=== PATIENT | female | born 1995 ===

== ENCOUNTER 2019-02-28 17:40 | Inpatient (IN) | payer OTHER ==
[2019-02-28] MEDS ORDERED: BENZOCAINE 20% 57 GM BOTTLE TP PRN (18:02)
[2019-02-28] MEDS ORDERED: SENNOSIDES/DOCUSATE COMBO (SENNA PLUS) TABLET (UD) PO PRN (18:02)
[2019-02-28] MEDS ORDERED: METHYLERGONOVINE MALEATE 0.2 MG/1 ML AMP IM PRN (18:02)
[2019-02-28] MEDS ORDERED: WITCH HAZEL 50% (TUCKS) 40 PAD/JAR PAD TP PRN (18:02)
[2019-02-28] MEDS ORDERED: SIMETHICONE 80 MG TAB.CHEW (FP) PO PRN (18:02)
[2019-02-28] MEDS ORDERED: BENZOCAINE 28 GM HEMORRHOIDAL OINTMENT TP PRN (18:02)
[2019-02-28] MEDS ORDERED: OXYTOCIN 10 UNITS/ML VIAL IM ONE (18:03)
--- NOTE | 2019-02-28 18:08 | HP ---
Past Medical History - Admission Chief Complaint: Uterine contractions History of Present Illness: 23yo @ 39.2wks by stated ED of 03/05/2019. +ctx. +LOF 1630- clears. No VB. +FM PNC in the [place], no records available. In the [place] for one week with plans to travel home in 3 days. States has been uncomplicated. 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: Alzheimer's, CVA, Dementia, Migraine, Multiple Sclerosis, Peripheral Neuropathy, Parkinson's, Seizure, Syncope, TIA, Vertigo, Other Cardiovascular: No: AFIB, Aneurysm, Aortic Insufficiency, Aortic Stenosis, CAD, CHF, Deep Vein Thrombosis, HTN, Hyperlipdemia, SD, Mitral Insufficiency, Mitral Stenosis, Murmur, Pulmonary Hypertension, Other Pulmonary: No: Asthma, Bronchitis, Cancer, COPD, O2 Dependent, Pneumonia, Previously Intubated, Pulmonary Embolus, Pulmonary Fibrosis, Sleep Apnea, Other Gastrointestinal: No: Ascites, Cancer, Constipation, Crohn's Disease, Diverticulitis, Diverticulosis, Esophageal Varices, Gastritis, GERD, GI Bleed, Hemorrhoids, Hiatal Hernia, Inflamatory Bowel Disease, Irritable Bowel Disease, Pancreatitis, Peptic Ulcer Disease, Ulcerative Colitis, Other Hepatobiliary: No: Cirrhosis, Cholelithiasis, Cholecystitis, Choledocholithiasis , Hepatitis A, Hepatitis B, Hepatitis C, Other Renal/: No: Renal Failure, Renal Inusuff, BPH, Cancer, Hematuria, Hemodialysis , Neurogenic Bladder, Renal Calculi, UTI, Other Reproductive: No: Ectopic , Endometriosis, Fibroids, PID, Polycystic Ovary Syndrome, Postmenopausal, Other ...: 2 ...Para: 1 ...Term: 1 ...: 0 ...Spon : 0 ...Induced : 0 ...Multiple Gestation: 0 ... Weeks Gestation by Dates: 39.2 ...EDC by Dates: 03/05/19 Heme/Onc: No: Anemia, B12 Deficiency, Bleeding Disorder, Cancer, Current Chemotherapy, Current Radiation Therapy, Hemochromatosis, Hypercoaguable State, Myeloproliferative Synd, Sickle Cell Disease, Sickle Cell Trait, Thrombocytopenia, Other Infectious Disease: No: AIDS, C-Diff, Herpes Zoster, HIV, MRSA, STD's, Tuberculosis, VREF, Other Psych: No: Addictions, Anxiety, Bipolar, Depression, Panic, Psychosis, Schizophrenia, Other Musculoskeletal: No: Bursitis, Chronic low back pain, Hemiparesis, Hemiplegia, Osteoarthritis, Paraplegia, Other Rheumatology: No: Fibromyalgia, Gout, Lupus, Rheumatoid Arthritis, Sarcoidosis, Vasculitis, Other ENT: No: Allergic Rhinitis, Sinusitis, Other Endocrine: No: Antonio's Disease, Saint Benedict's Disease, Diabetes Insipidus, Diabetes Mellitus, Hyperparathyroidism, Hyperthyroidism, Hypothyroidism, Osteopenia, SIADH, Other Dermatology: No: Basal Cell, Cellulitis, Eczema, Melanoma, Psoriasis, Squamous Cell, Other - Past Surgical History Past Surgical History: No: None, AAA Repair, AICD, Amputation, Appendectomy, Arthrosocopy, AV Fistula/Graft, Bariatric Surgery, Breast Biopsy, Bypass, CABG, Carotid Endarterectomy, Cataract Removal, Cholecystectomy, Colectomy, Colonoscopy, Colostomy, Craniotomy, , Cystectomy, Hernia Repair, Hysterectomy, Ileal Conduit, Ileosotomy, Joint Replacement, Kidney Transplant, Laminectomy, Liver Transplant, Mastectomy, Nephrectomy, Oopherectomy, Orchiectomy, Permanent Pacemaker, Prostatectomy, Splenectomy, Stent, Thoracotomy , TURP, Tonsillectomy, Tubal Ligation, Upper Endoscopy, Valve Replacement, Vasectomy, Vein Stripping/Ligation Hx Myomectomy: No Hx Transabdominal Cerclage: No - Smoking History Have you smoked in the past 12 months: No - Alcohol/Substance Use Hx Alcohol Use: No History of Substance Use: reports: None - Social History Usual Living Arrangement: Yes: With Significant Other History of Recent Travel: No Physical Exam - Maternity Constitutional: Yes: Well Nourished Eyes: Yes: WNL - Abdominal Exam/OB Number of Fetuses: Single Presentation: Vertex Contractions: Yes Regularity: Regular Intensity: Strong Monitor Mode: External Category: I Accelerations: Non-Uniform Decelerations: None - Vaginal Exam/OB Vaginal Bleediing: No Speculum Exam: No Dilatation (cm): 10 Effacement (%): 100 Amniotic Membrane Status: Ruptured Nitrazine Test: Positive Amniotic Fluid: Yes: Clear Presentation: Vertex/Position Station: +2 - Physical Exam Edema: No Problem List - Problems (1) Uterine contractions Code(s): [id number] - Assessment/Plan 23yo @ 39.2wks here in labor Admit to L&D NPO, IVFs FHT reassuring PNL panel to be ordered; Utox given lack of PNC/records Anticipate imminent AVILA iSlva MD
[2019-02-28 18:11] VITALS: BMI 23.9
--- NOTE | 2019-02-28 18:11 | PN ---
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 39 week . No anesthesia. No meconium. Nuchal x 1, delivered through and then reduced. Spontaneous delivery of anterior shoulder. placed on maternal abdomen. Cord clamped and cut. Apgars 9/9. Weight pending. Spontaneous delivery of intact placenta with 3VC. Fundus firm. Perineum inspected, no lacerations. EBL 250ml. Mother and baby doing well. Julisa Silva MD
[2019-02-28] MEDS ORDERED: OXYTOCIN 20 UNITS in 0.9% NS 20 UNIT/1,000 ML INFUS.BAG IV SCH (18:15)
[2019-02-28 19:45] LABS: BASO % 0.1 % (0-2.0); EOS % 0.1 % (0-4.5); HEMATOCRIT 39.2 % (32.4-45.2); MCH 29.6 pg (25.7-33.7); MCHC 33.1 g/dl (32.0-36.0); MEAN CELL VOLUME 89.6 fl (80-96); MEAN PLT VOLUME 9.6 fl (7.5-11.1); NEUT % 87.8 % (42.8-82.8); PLATELET COUNT 170 K/MM3 (134-434); RBC 4.38 M/mm3 (3.60-5.2); RDW 14.1 % (11.6-15.6)
[2019-02-28 20:11] LABS: INR 0.93 (0.83-1.09)
[2019-02-28 20:14] LABS: ACTIVATED PTT 27.5 SECONDS (25.2-36.5)
[2019-02-28 20:25] LABS: ALBUMIN 2.9 g/dl (3.4-5.0); BILIRUBIN,TOTAL 0.5 mg/dL (0.2-1); CALCIUM 8.4 mg/dL (8.5-10.1); CREATININE 0.6 mg/dL (0.55-1.3); POTASSIUM 3.6 mmol/L (3.5-5.1); TOT PROT 6.2 g/dl (6.4-8.2)
[2019-02-28 23:53] LABS: EPI CELLS 10.8 /HPF (0-5/HPF); HYALINE CASTS 6 /lpf (0-8); PH,URINE 8.5 (5.0-8.0); URINE APPEARANCE CLOUDY; URINE BACTERIA 2.7 /hpf (NEGATIVE); URINE BILIRUBIN NEGATIVE (NEGATIVE); URINE COLOR ORANGE; URINE GLUCOSE (UA) NEGATIVE (NEGATIVE); URINE KETONE NEGATIVE (NEGATIVE); URINE LEUK ESTERASE 2+ (NEGATIVE); URINE NITRITE NEGATIVE (NEGATIVE); URINE PROTEIN NEGATIVE (NEGATIVE); URINE RBC 761 /hpf (0-4); URINE WBC 14 /hpf (0-5)
[2019-03-01] MEDS: IBUPROFEN 600 MG TABLET (FP) PO PRN ×4 (00:05→22:33)
--- NOTE | 2019-03-01 06:03 | PN ---
Post Progress Note Post Day: 1 Type of Delivery: Vital Signs: Vital Signs Temperature 98.5 F 03/01/19 02:00 Pulse Rate 72 03/01/19 02:00 Respiratory Rate 18 03/01/19 02:00 Blood Pressure 138/74 03/01/19 02:00 O2 Sat by Pulse Oximetry (%) 100 02/28/19 18:45 Breast Exam: Yes: Soft Uterus: Yes: Fundus Firm Abdomen/GI: Yes: Abdomen soft Lochia: Yes: Rubra Lochia, amount: Small Extremities: Yes: Calves non-tender Perineum: Yes: Intact Activity: Ambulating - Labs Labs: CBC WBC 14.0 K/mm3 (4.0-10.0) H 02/28/19 19:00 RBC 4.38 M/mm3 (3.60-5.2) 02/28/19 19:00 Hgb 13.0 GM/dL (10.7-15.3) 02/28/19 19:00 Hct 39.2 % (32.4-45.2) 02/28/19 19:00 MCV 89.6 fl (80-96) 02/28/19 19:00 MCH 29.6 pg (25.7-33.7) 02/28/19 19:00 MCHC 33.1 g/dl (32.0-36.0) 02/28/19 19:00 RDW 14.1 % (11.6-15.6) 02/28/19 19:00 Plt Count 170 K/MM3 (134-434) 02/28/19 19:00 MPV 9.6 fl (7.5-11.1) 02/28/19 19:00 Absolute Neuts (auto) 12.3 K/mm3 (1.5-8.0) H 02/28/19 19:00 Neutrophils % 87.8 % (42.8-82.8) H 02/28/19 19:00 Lymphocytes % 9.0 % (8-40) 02/28/19 19:00 Monocytes % 3.0 % (3.8-10.2) L 02/28/19 19:00 Eosinophils % 0.1 % (0-4.5) 02/28/19 19:00 Basophils % 0.1 % (0-2.0) 02/28/19 19:00 Nucleated RBC % 0 % (0-0) 02/28/19 19:00 Problem List - Problems (1) Uterine contractions Code(s): [id number] - Assessment/Plan 23yo s/p Routine PP care OOB,ambulate Po pain control Labs pending Anticipate d/c to home PPD#2 Rosemary Silva MD
[2019-03-01 10:05] LABS: COCAINE, UR NEGATIVE ng/ml (CUTOFF=300); METHADONE, UR NEGATIVE ng/ml (CUTOFF=300); OPIATES, URI NEGATIVE ng/ml (CUTOFF=300); PHENCYCLIDINE,URINE NEGATIVE ng/ml (CUTOFF=25); URINE AMPHETAMINES NEGATIVE ng/ml (CUTOFF=500); URINE BARBITURATES NEGATIVE ng/ml (CUTOFF=200); URINE BENZODIAZEPINES NEGATIVE ng/ml (CUTOFF=200)
[2019-03-01] MEDS: PRENATAL VITAMINS W/ FOLIC ACID TABLET (FP) PO SCH (10:34)
[2019-03-01] MEDS: FERROUS SO4 325 MG TABLET (FP) PO SCH ×2 (10:35→18:33)
[2019-03-01 10:41] LABS: BASO % 0.2 % (0-2.0); EOS % 0.2 % (0-4.5); HEMATOCRIT 39.1 % (32.4-45.2); HEMOGLOBIN 12.8 GM/dL (10.7-15.3); LYMPH % 17.4 % (8-40); MCH 29.5 pg (25.7-33.7); MCHC 32.8 g/dl (32.0-36.0); MEAN PLT VOLUME 9.4 fl (7.5-11.1); MONO % 7.4 % (3.8-10.2); NEUT % 74.8 % (42.8-82.8); PLATELET COUNT 166 K/MM3 (134-434); RBC 4.34 M/mm3 (3.60-5.2); RDW 14.2 % (11.6-15.6); WHITE BLOOD COUNT 14.1 K/mm3 (4.0-10.0)
[2019-03-01] MEDS ORDERED: FLU VACCINE QUAD 60 MCG/0.5 ML (MDV 18-19) IM ONE (14:00)
[2019-03-01] MEDS ORDERED: DIPHTH,PERTUSS(ACELL),TET 0.5 ML DISP.SYRIN IM ONE (14:00)
[2019-03-01] MEDS ORDERED: BISACODYL 10 MG SUPP.RECT RC PRN (18:02)
[2019-03-02 06:36] LABS: HBsAG SCREEN Negative (Negative)
[2019-03-02] MEDS: FERROUS SO4 325 MG TABLET (FP) PO SCH (09:44)
[2019-03-02] MEDS: PRENATAL VITAMINS W/ FOLIC ACID TABLET (FP) PO SCH (09:44)
[2019-03-02] MEDS: IBUPROFEN 600 MG TABLET (FP) PO PRN (09:47)
--- NOTE | 2019-03-02 11:18 | DS ---
Physical Examination Vital Signs: Vital Signs Temperature 98.5 F 03/01/19 22:00 Pulse Rate 62 03/01/19 22:00 Respiratory Rate 18 03/01/19 22:00 Blood Pressure 115/72 03/01/19 22:00 O2 Sat by Pulse Oximetry (%) 100 02/28/19 18:45 Constitutional: Yes: Well Nourished, No Distress, Calm Eyes: Yes: WNL, Conjunctiva Clear, EOM Intact HENT: Yes: WNL, Atraumatic, Normocephalic Neck: Yes: WNL, Supple, Trachea Midline Cardiovascular: Yes: WNL, Regular Rate and Rhythm Respiratory: Yes: WNL, Regular, CTA Bilaterally Gastrointestinal: Yes: WNL, Normal Bowel Sounds Musculoskeletal: Yes: WNL Extremities: Yes: WNL Edema: No Integumentary: Yes: WNL Neurological: Yes: WNL, Alert, Oriented ...Motor Strength: WNL Psychiatric: Yes: WNL Labs: CBC, BMP 03/01/19 10:33 02/28/19 19:00 Discharge Summary Reason For Visit: LABOR Current Active Problems Uterine contractions (Acute) Procedures: Principal: Hospital Course: Patient presented in active labor She had an uncomplicated She met all milestones She was discharged home on PPD#2 in stable condition Rosemary Silva MD Condition: Stable - Instructions Diet, Activity, Other Instructions: Regular Diet Referrals: Julisa Silva MD [Staff Physician] - Disposition: HOME - Home Medications Comprehensive Discharge Medication List: Ambulatory Orders Vit 108/Iron/Folic AC [ One Tablet] 1 tab PO DAILY 02/28/19
[2019-03-02 11:28] VITALS: BP 122/68; PULSE 77; TEMP 98.4
== END 2019-03-02 13:25 | disposition home or self-care (01) | DRG 560 ==
LOC: JLDR 17:40 → J3W 19:40
PROVIDERS: ADMIT Obstetrics & Gynecology; ATTEND Obstetrics & Gynecology
PROC: 10E0XZZ Delivery of Products of Conception, External Approach (ICD-10-PCS; principal; 2019-02-28)
DX: O80 Encounter for full-term uncomplicated delivery (principal); Z3A.39 39 weeks gestation of pregnancy; Z37.0 Single live birth
CPT/HCPCS: 36415; 59409; 71046-TC-FY; 80053; 80307; 81003; 85025; 85610; 85730; 86593; 86762; 86850; 86900; 86901; 87340; 87389; 90686; 90715; G0008